=== PATIENT | female | born 1990 | race Native Hawaiian/Other Pacific Islander ===

== ENCOUNTER 2019-02-20 18:01 | Emergency (ER) | payer OTHER ==
[~2019-02-20] VITALS: Ht 167.6 cm; Wt 58.6 kg
[2019-02-20] MEDS ORDERED: NS 1,000 ML IV ONE (19:00)
[2019-02-20 19:30] LABS: BASO % 0.4 % (0.0-1.0); EOS % 0.8 % (0.0-3.0); HEMATOCRIT 34.5 % (36.0-47.0); HEMOGLOBIN 9.8 g/dl (12.0-15.5); LYMPH # 1.6 10^3/uL (1.5-5.0); LYMPH % 29.8 % (24.0-44.0); MEAN CORPUSCULAR HEMOGLOBIN 20.4 pg (27.0-33.0); MEAN CORPUSCULAR HGB CONC 28.4 g/dl (32.0-36.5); MEAN CORPUSCULAR VOLUME 71.7 fl (80.0-96.0); MONO # 0.2 10^3/uL (0.0-0.8); MONO % 3.6 % (0.0-5.0); NEUTROPHILS # 3.5 10^3/uL (1.5-8.5); NEUTROPHILS % 65.4 % (36.0-66.0); PLATELET COUNT, AUTOMATED 676 10^3/uL (150-450); RED BLOOD COUNT 4.81 10^6/uL (4.00-5.40); WHITE BLOOD COUNT 5.3 10^3/uL (4.0-10.0)
[2019-02-20 19:41] LABS: INR 0.95; PROTHROMBIN TIME 12.4 SECONDS (11.8-14.0)
[2019-02-20 19:44] LABS: D-DIMER QUANT 396.14 ng/ml (<500)
[2019-02-20 20:02] LABS: BLOOD UREA NITROGEN 4 MG/DL (7-18); CALCIUM LEVEL 9.3 MG/DL (8.5-10.1); CARBON DIOXIDE LEVEL 26 MEQ/L (21-32); CHLORIDE LEVEL 109 MEQ/L (98-107); CK-MB VALUE MASS < 1.0 NG/ML (<3.6); CPK CREATINE PHOSPHOKINASE 103 U/L (26-192); CREATININE FOR GFR 0.46 MG/DL (0.55-1.30); FREE T4 1.25 NG/DL (0.76-1.46); GLOMERULAR FILTRATION RATE > 60.0 (>60); GLUCOSE, FASTING 92 MG/DL (70-100); HCG, SERUM QUANTITATIVE < 1.0 MIU/ML; MB/CK RELATIVE INDEX 0.97 (< OR =4); POTASSIUM SERUM 4.2 MEQ/L (3.5-5.1); SODIUM LEVEL 140 MEQ/L (136-145); TROPONIN I < 0.02 NG/ML (< 0.10)
[2019-02-20] MEDS ORDERED: ISOVUE-370 76% 100ML VIAL (Q9967) As Ordered ONE (20:29)
--- NOTE | 2019-02-20 20:49 | REP ---
Clinical: Acute chest pain . Comparison: None . Findings: The mediastinum and cardiac silhouette are stable and within normal limits for portable technique. The lung hernandez are clear without acute consolidation, effusion, or pneumothorax. Skeletal structures are intact. Impression: No acute cardiopulmonary process appreciated. Electronically Signed by Roman Hayes MD 02/20/2019 08:40 P
[2019-02-20] MEDS ORDERED: diphenhydrAMINE INJ 50MG/ML VIAL (J1200) As Ordered ONE (21:09)
[2019-02-20] MEDS ORDERED: methylPREDNISolone INJ 125 MG/2 ML VIAL (J2930) As Ordered ONE (21:09)
[2019-02-20] MEDS ORDERED: diphenhydrAMINE INJ 50MG/ML VIAL (J1200) IV STA (21:18)
[2019-02-20] MEDS ORDERED: methylPREDNISolone INJ 125 MG/2 ML VIAL (J2930) IV ONE (21:30)
--- NOTE | 2019-02-20 22:14 | REPVR ---
EXAM: CT Angiography Chest With Contrast EXAM DATE/TIME: 02/20/2019 9:25 PM CLINICAL HISTORY: 28 years old, female; Chest pain; Additional info: Chest pain/palpitations TECHNIQUE: Imaging protocol: Computed tomographic angiography of the chest with intravenous contrast. 3D rendering: MIP reconstructed images were created and reviewed. Radiation optimization: All CT scans at this facility use at least one of these dose optimization techniques: automated exposure control; mA and/or kV adjustment per patient size (includes targeted exams where dose is matched to clinical indication); or iterative reconstruction. Contrast material: ISOVUE 370; Contrast volume: 75 ml; Contrast route: IV; COMPARISON: CR PORTABLE CHEST X-RAY 02/20/2019 7:47 PM FINDINGS: Pulmonary arteries: The main pulmonary artery measures 22 mm. No pulmonary embolism is identified. Aorta: The ascending thoracic aorta measures 27 mm. Lungs: Unremarkable. No consolidation. No masses. Pleural space: Unremarkable. No pneumothorax. No pleural effusion. Heart: Unremarkable. No cardiomegaly. No pericardial effusion. Mediastinum: There is induration conforming to the anterior mediastinum consistent with residual thymic tissue. Gallbladder and bile ducts: Question of slight gallbladder wall thickening with no gallstones Lymph nodes: Unremarkable. No enlarged lymph nodes. Bones/joints: Unremarkable. No acute fracture. Soft tissues: Unremarkable. IMPRESSION: 1. Question slight gallbladder wall thickening with no gallstones. 2. Otherwise negative CTA chest. No pulmonary embolism is identified. Electronically signed by: Quang Watson On 02/20/2019 22:14:18 PM
[2019-02-20] MEDS ORDERED: holter monitor (22:53)
[2019-02-20] MEDS ORDERED: PRED20TA PO (22:56)
[2019-02-20 23:30] VITALS: BP 127/88
--- NOTE | 2019-02-21 00:51 | ECGEPIP ---
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
== END 2019-02-20 23:36 | disposition home or self-care (01) ==
LOC: M ED 18:01
DX: R00.2 Palpitations (principal); R22.0 Localized swelling, mass and lump, head; Z91.041 Radiographic dye allergy status; Z91.010 Allergy to peanuts; Z91.013 Allergy to seafood
CPT/HCPCS: 71045; 71275; 80048; 82550; 82553; 84439; 84443; 84484; 84702; 85025; 85379; 85610; 85730; 93005; 93041; 94760; 96361; 96374; 96375; 99285; J1200; J2930; Q9967

== ENCOUNTER → 2019-02-26 | Outpatient (CLI) | payer OTHER ==
[~2019-02-26] MED LIST: PRED20TA PO; holter monitor
--- NOTE | 2019-02-28 18:13 | HOLTMON ---
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 8 isolated PACs and one triplet but no PSVT No ventricular ectopic activity No significant bradyarrhythmia or pause. Single episode of "head felt tingly" correlated with sinus tachycardia at 134 bpm Electronically Signed on 02-28-2019 18:13:30 EDT by Juan Francisco Pompa
== END ==
LOC: M EKG 13:12
PROVIDERS: ATTEND Internal Medicine
DX: R00.2 Palpitations (principal)

== ENCOUNTER → 2019-11-07 | Outpatient (REF) | payer OTHER ==
[~2019-11-07] MED LIST changes: +FERR325T82 PO; +OMEP10CASR PO; +ZOLO50TA PO
== END ==
LOC: M LAB REF 19:43
PROVIDERS: ATTEND Nurse Practitioner Family
DX: Z20.828 Contact with and (suspected) exposure to other viral communicable diseases (principal)

== ENCOUNTER → 2019-11-20 | Outpatient (CLI) | payer OTHER ==
--- NOTE | 2019-11-21 01:29 | REP ---
Clinical: Cough . Comparison: 02/20/2019 . Technique: PA and lateral. Findings: The mediastinum and cardiac silhouette are normal. The lung hernandez are clear and without acute consolidation, effusion, or pneumothorax. The skeletal structures are intact and normal. Impression: 1. No acute cardiopulmonary process. Electronically Signed by Roman Hayes MD 11/21/2019 01:21 A
== END ==
LOC: M WUC 12:49
PROVIDERS: ATTEND Physician Assistant
DX: R05 Cough (principal)